=== PATIENT | male | born 1985 | race African-American/Black ===

== ENCOUNTER 2017-02-12 20:35 | Emergency (ER) | payer SELFPAY ==
[2017-02-12] MEDS ORDERED: IPRATROPIUM/ALBUTEROL 0.5-2.5 MG/3 ML AMPUL NEB ONE (20:53)
[2017-02-12] MEDS ORDERED: PREDNISONE 20 MG TABLET PO ONE (20:53)
[2017-02-12] MEDS ORDERED: ALBUTEROL SULFATE 0.083% NEB 2.5 MG/3 ML AMPUL NEB SCH (21:08)
--- NOTE | 2017-02-12 21:25 | RADIOLOGY REPORT (SQ) ---
EXAM DESCRIPTION: CHEST PA/LAT COMPLETED DATE/TIME: 02/12/2017 9:15 pm REASON FOR STUDY: diffculty breathing COMPARISON: May 2016 EXAM PARAMETERS: NUMBER OF VIEWS: two views TECHNIQUE: Digital Frontal and Lateral radiographic views of the chest acquired. RADIATION DOSE: NA LIMITATIONS: none FINDINGS: LUNGS AND PLEURA: No opacities, masses or pneumothorax. No pleural effusion. MEDIASTINUM AND HILAR STRUCTURES: No masses or contour abnormalities. HEART AND VASCULAR STRUCTURES: Heart normal size. No evidence for failure. BONES: No acute findings. HARDWARE: None in the chest. OTHER: No other significant finding. IMPRESSION: NO SIGNIFICANT RADIOGRAPHIC FINDING IN THE CHEST. TECHNICAL DOCUMENTATION: JOB ID: [id number] [employer]- All Rights Reserved
[2017-02-12] MEDS ORDERED: ALBUTEROL SULFATE HFA (90 MCG/PUFF) 8 GM MDI (1 MDI/ER DISP) IH ONE (22:30)
--- NOTE | 2017-02-12 22:31 | ER Document Report ---
ED General - General Chief Complaint: Chest Tightness Stated Complaint: CHEST TIGHTNESS Time Seen by Provider: 02/12/17 22:16 TRAVEL OUTSIDE OF THE [place] IN LAST 30 DAYS: No - HPI Patient complains to provider of: Shortness of breath Notes: Patient coming in for evaluation shortness of breath. Patient states smokes approximately half pack a day. Patient states similar symptoms to bronchitis in the past. 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 Patient currently receiving a breathing treatment denies any other complaints. - Related Data Allergies/Adverse Reactions: No Known Allergies Allergy (Verified 06/22/15 11:24) Past Medical History - Social History Smoking Status: Unknown if Ever Smoked Family History: Arthritis, Malignancy. denies: CAD, COPD, CVA, DM, Hyperlipidemia, Hypertension, Thyroid Disfunction Pulmonary Medical History: Reports: Hx Bronchitis Renal/ Medical History: Denies: Hx Peritoneal Dialysis Musculoskeltal Medical History: Reports Hx Musculoskeletal Trauma Psychiatric Medical History: Reports: Hx Attention Deficit Hyperactivity Disorder Traumatic Medical History: Reports: Hx Fractures - 5th finger left Past Surgical History: Reports: Hx Herniorrhaphy, Hx Inguinal Hernia - Immunizations Immunizations up to date: Yes Hx Diphtheria, Pertussis, Tetanus Vaccination: Yes Review of Systems - Review of Systems Constitutional: No symptoms reported EENT: No symptoms reported Cardiovascular: No symptoms reported Respiratory: Short of breath, Wheezing Gastrointestinal: No symptoms reported Genitourinary: No symptoms reported Male Genitourinary: No symptoms reported Musculoskeletal: No symptoms reported Skin: No symptoms reported Hematologic/Lymphatic: No symptoms reported Neurological/Psychological: No symptoms reported -: Yes All other systems reviewed and negative Physical Exam - Vital signs Vitals: Temp Pulse Resp BP Pulse Ox 98.7 F 91 22 H 115/79 96 02/12/17 20:53 02/12/17 20:53 02/12/17 20:53 02/12/17 20:53 02/12/17 20:53 Interpretation: Normal - General General appearance: Appears well, Alert - HEENT Head: Normocephalic, Atraumatic Eyes: Normal Pupils: PERRL - Respiratory Respiratory status: No respiratory distress Chest status: Nontender Breath sounds: Normal Chest palpation: Normal - Cardiovascular Rhythm: Regular Heart sounds: Normal auscultation Murmur: No - Abdominal Inspection: Normal Distension: No distension Bowel sounds: Normal Tenderness: Nontender Organomegaly: No organomegaly - Back Back: Normal, Nontender - Extremities General upper extremity: Normal inspection, Nontender, Normal color, Normal ROM , Normal temperature General lower extremity: Normal inspection, Nontender, Normal color, Normal ROM , Normal temperature, Normal weight bearing. No: Sarah's sign - Neurological Neuro grossly intact: Yes Cognition: Normal Orientation: AAOx4 Christopher Coma Scale Eye Opening: Spontaneous Bim Coma Scale Verbal: Oriented Bim Coma Scale Motor: Obeys Commands Christopher Coma Scale Total: 15 Speech: Normal Motor strength normal: LUE, RUE, LLE, RLE Sensory: Normal - Psychological Associated symptoms: Normal affect, Normal mood - Skin Skin Temperature: Warm Skin Moisture: Dry Skin Color: Normal Course - Re-evaluation Re-evalutation: 02/13/17 00:17 Chest x-ray is negative. More likely patient has slight bronchitis. Will treat with bronchodilators and prednisone patient will be given prescription for prednisone and Dr. hernandez will be given a to go to bronchodilator. Patient agrees to plan patient also was educated about smoking cessation - Vital Signs Vital signs: Temp Pulse Resp BP Pulse Ox 98.2 F 86 22 H 125/91 H 99 02/12/17 21:01 02/12/17 21:01 02/12/17 22:05 02/12/17 22:01 02/12/17 22:01 Discharge - Discharge Clinical Impression: Bronchitis Condition: Good Disposition: HOME, SELF-CARE Instructions: Bronchitis With Bronchospasm (Wheezing) ([facility]), Inhaled Bronchodilators ([facility]), Stop Smoking ([facility]) Additional Instructions: Please stop smoking this will prevent her symptoms from reoccurring. If he continues to smoke medications that we prescribed will not be effective. Return to the ER if symptoms worsen Prescriptions: Albuterol Sulfate [Proair Hfa Inhalation Aerosol 8.5 gm Mdi] 1 puff IH Q4 PRN # 1 mdi PRN Reason: Prednisone [Deltasone] 60 mg PO DAILY #24 tablet Forms: Return to Work, Smoking Cessation Education
[2017-02-12 22:47] VITALS: BP 125/91
--- NOTE | 2017-02-13 07:53 | EKG REPORT ---
SEVERITY:- NORMAL ECG - SINUS RHYTHM : Confirmed by: David Dai MD 13-Feb-2017 07:52:05
== END 2017-02-12 23:00 | disposition home or self-care (01) ==
LOC: ER 20:35
DX: R07.9 Chest pain, unspecified (principal)
CPT/HCPCS: 93005; 94640; 99285; 71020; 93010; J7512; J3490; J7620

== ENCOUNTER 2017-09-10 18:59 | Emergency (ER) | payer SELFPAY ==
--- NOTE | 2017-09-10 20:27 | ER Document Report ---
ED Medical Screen (RME) - General Chief Complaint: Chest Pain Stated Complaint: CHEST PAIN Time Seen by Provider: 09/10/17 20:26 Notes: 2 days of cough cold congestion and wheezing. He states he has been told that he has chronic bronchitis and then another time he was told he has asthma. He states he does not usually use inhalers and they help but he is currently out of them. He states he does not remember taking any steroids in the past. TRAVEL OUTSIDE OF THE [place] IN LAST 30 DAYS: No - Related Data Allergies/Adverse Reactions: No Known Allergies Allergy (Verified 06/22/15 11:24) Past Medical History - Social History Chew tobacco use (# tins/day): No Frequency of alcohol use: None Drug Abuse: None Pulmonary Medical History: Reports: Hx Bronchitis Renal/ Medical History: Denies: Hx Peritoneal Dialysis Musculoskeltal Medical History: Reports Hx Musculoskeletal Trauma Psychiatric Medical History: Reports: Hx Attention Deficit Hyperactivity Disorder Traumatic Medical History: Reports: Hx Fractures - 5th finger left Past Surgical History: Reports: Hx Herniorrhaphy, Hx Inguinal Hernia - Immunizations Immunizations up to date: Yes Hx Diphtheria, Pertussis, Tetanus Vaccination: Yes Physical Exam - Vital signs Vitals: Temp Pulse Resp BP Pulse Ox 98.5 F 113 H 20 151/72 H 95 09/10/17 19:31 09/10/17 19:31 09/10/17 19:31 09/10/17 19:31 09/10/17 19:31 Course - Vital Signs Vital signs: Temp Pulse Resp BP Pulse Ox 98.5 F 113 H 20 151/72 H 95 09/10/17 19:31 09/10/17 19:31 09/10/17 19:31 09/10/17 19:31 09/10/17 19:31
[2017-09-10] MEDS ORDERED: IPRATROPIUM/ALBUTEROL 0.5-2.5 MG/3 ML AMPUL NEB ONE (20:43)
[2017-09-10] MEDS ORDERED: PREDNISONE 20 MG TABLET PO ONE (20:43)
--- NOTE | 2017-09-10 20:51 | RADIOLOGY REPORT (SQ) ---
EXAM DESCRIPTION: CHEST PA/LAT COMPLETED DATE/TIME: 09/10/2017 8:38 pm REASON FOR STUDY: cough COMPARISON: 02/12/2017 EXAM PARAMETERS: NUMBER OF VIEWS: two views TECHNIQUE: Digital Frontal and Lateral radiographic views of the chest acquired. RADIATION DOSE: NA LIMITATIONS: none FINDINGS: LUNGS AND PLEURA: No opacities, masses or pneumothorax. No pleural effusion. MEDIASTINUM AND HILAR STRUCTURES: No masses or contour abnormalities. HEART AND VASCULAR STRUCTURES: Heart normal size. No evidence for failure. BONES: No acute findings. HARDWARE: None in the chest. OTHER: No other significant finding. IMPRESSION: NO SIGNIFICANT RADIOGRAPHIC FINDING IN THE CHEST. TECHNICAL DOCUMENTATION: JOB ID: [id number] [employer]- All Rights Reserved Reading location - IP/workstation name: [email or web address]
[2017-09-10] MEDS ORDERED: ALBUTEROL SULFATE HFA (90 MCG/PUFF) 8 GM MDI (1 MDI/ER DISP) IH PRN (22:40)
--- NOTE | 2017-09-10 22:49 | ER Document Report ---
ED General - General Chief Complaint: Chest Pain Stated Complaint: CHEST PAIN Time Seen by Provider: 09/10/17 20:26 Notes: Patient is a 31-year-old male who presents with 3-4 days of progressively worsening cough and intermittent shortness of breath. Patient states symptoms feel similar to when he has had a reactive airway syndrome in the past but he has never formally been diagnosed with asthma. He does note that his symptoms are worsened by cold air. He has not tried any to improve his symptoms although he notes in the past an inhaler has improved his symptoms. He has not seen his primary doctor regarding today's concerns. He denies any fever, sputum production, syncope, or hemoptysis. He does report a generalized chest wall discomfort with episodes of coughing no pain aside from episodes of coughing. He has no history of DVT or pulmonary embolus. No pleuritic pain. No unilateral leg swelling. He does continue to smoke. TRAVEL OUTSIDE OF THE [place] IN LAST 30 DAYS: No - Related Data Allergies/Adverse Reactions: No Known Allergies Allergy (Verified 06/22/15 11:24) Past Medical History - General Information source: Patient - Social History Smoking Status: Current Every Day Smoker Chew tobacco use (# tins/day): No Frequency of alcohol use: None Drug Abuse: None Lives with: Family Family History: Arthritis, Malignancy. denies: CAD, COPD, CVA, DM, Hyperlipidemia, Hypertension, Thyroid Disfunction Patient has suicidal ideation: No Patient has homicidal ideation: No Pulmonary Medical History: Reports: Hx Bronchitis Renal/ Medical History: Denies: Hx Peritoneal Dialysis Musculoskeltal Medical History: Reports Hx Musculoskeletal Trauma Psychiatric Medical History: Reports: Hx Attention Deficit Hyperactivity Disorder Traumatic Medical History: Reports: Hx Fractures - 5th finger left Past Surgical History: Reports: Hx Herniorrhaphy, Hx Inguinal Hernia - Immunizations Immunizations up to date: Yes Hx Diphtheria, Pertussis, Tetanus Vaccination: Yes Review of Systems - Review of Systems Notes: Constitutional: Negative for fever. HENT: Negative for sore throat. Eyes: Negative for visual changes. Cardiovascular: Negative for chest pain. Respiratory: Positive for shortness of breath. Gastrointestinal: Negative for abdominal pain, vomiting or diarrhea. Genitourinary: Negative for dysuria. Musculoskeletal: Negative for back pain. Skin: Negative for rash. Neurological: Negative for headaches, weakness or numbness. 10 point ROS negative except as marked above and in HPI. Physical Exam - Vital signs Vitals: Temp Pulse Resp BP Pulse Ox 98.5 F 113 H 20 151/72 H 95 09/10/17 19:31 18 19:31 18 19:31 09/10/17 19:31 09/10/17 19:31 Interpretation: Normal - Initial tachycardia is resolved at time of my assessment Notes: PHYSICAL EXAMINATION: GENERAL: Well-appearing, well-nourished and in no acute distress. HEAD: Atraumatic, normocephalic. EYES: Pupils equal round and reactive to light, extraocular movements intact, sclera anicteric, conjunctiva are normal. ENT: nares patent, oropharynx clear without exudates. Moderately dry mucous membranes. NECK: Normal range of motion, supple without lymphadenopathy LUNGS: Breath sounds clear to auscultation bilaterally and equal. Faint end expiratory wheezing in all lung schneider bilaterally HEART: Regular rate and rhythm without murmurs ABDOMEN: Soft, nontender, normoactive bowel sounds. No guarding, no rebound. No masses appreciated. EXTREMITIES: Normal range of motion, no pitting or edema. No cyanosis. NEUROLOGICAL: No focal neurological deficits. Moves all extremities spontaneously and on command. PSYCH: Normal mood, normal affect. SKIN: Warm, Dry, normal turgor, no rashes or lesions noted. Course - Re-evaluation Re-evalutation: 09/10/17 22:47 Patient presents with a clinical history and exam most consistent with an acute viral bronchitis. Patient is overall well in appearance without tachypnea, hypoxemia, tachycardia (initial tachycardia resolved at time of my assessment), or difficulty with ambulation. Breath sounds are clear bilaterally Only faint end expiratory wheezing. Patient has a history of the same and does continue to smoke. Smoking cessation counseling was provided. Patient's chest x-ray is clear. He did report some mild chest discomfort with coughing, consistent with musculoskeletal irritation. Will treat with bronchodilators. EKG is not consistent with acute ischemia and again I do not clinically suspect an PR or need for troponin assay testing. At time of my assessment the patient is PERC criteria negative and I do not clinically suspect an acute pulmonary embolus. At this time will discharge with return precautions and follow-up recommendations. Verbal discharge instructions given a the bedside and opportunity for questions given. Medication warnings reviewed. Patient is in agreement with this plan and has verbalized understanding of return precautions and the need for primary care follow-up in the next 24-72 hours. 09/11/17 04:09 - Vital Signs Vital signs: Temp Pulse Resp BP Pulse Ox 98.6 F 89 18 140/78 H 99 09/10/17 23:02 09/10/17 23:02 09/10/17 23:02 09/10/17 23:02 09/10/17 23:02 - Diagnostic Test Radiology reviewed: Image reviewed, Reports reviewed Radiology results interpreted by me: 09/10/17 22:48 Chest x-ray: No acute infiltrate or pneumothorax - EKG Interpretation by Me Additional EKG results interpreted by me: 09/11/17 04:10 Sinus tachycardia. Rate 114. No ST elevations or depressions. QTC is 430. Discharge - Discharge Clinical Impression: Bronchitis Reactive airway disease Qualifiers: Asthma severity: mild Asthma persistence: intermittent Asthma complication type : with acute exacerbation Qualified Code(s): J45.21 - Mild intermittent asthma with (acute) exacerbation Condition: Good Disposition: HOME, SELF-CARE Additional Instructions: You were seen for symptoms most consistent with bronchitis. This can take up to 12 weeks to fully resolve. This is generally due to a viral infection. Please follow-up with your primary doctor in the next 2-3 days. Return if you develop worsening cough, vomiting, fever >100.4, pass out, begin coughing blood, or have any other symptoms that are concerning to you. Please use the medications prescribed today as directed.
[2017-09-10 23:07] VITALS: BP 140/78
--- NOTE | 2017-09-11 07:27 | EKG REPORT ---
SEVERITY:- ABNORMAL ECG - SINUS TACHYCARDIA RAA, CONSIDER BIATRIAL ABNORMALITIES : Confirmed by: David Dai MD 11-Sep-2017 07:26:28
== END 2017-09-10 23:03 | disposition home or self-care (01) ==
LOC: ER 18:59
DX: J40 Bronchitis, not specified as acute or chronic (principal); J45.21 Mild intermittent asthma with (acute) exacerbation; R07.9 Chest pain, unspecified; R05 Cough; R06.02 Shortness of breath; F17.200 Nicotine dependence, unspecified, uncomplicated
CPT/HCPCS: 93005; 94640; 99285; 71046; 93010; J7512; J3490; J7620